=== PATIENT | male | born 1965 | race Caucasian/White ===

== ENCOUNTER → 2016-10-25 | Outpatient (CLI) | payer OTHER ==
[~2016-10-25] MED LIST: ATV/1 GT; CIPR-255 GT; CLIN300C2 GT; FLUC200T GT; LANS30CA63 MT; TAMS0.4C38 GT; VENL150T33 GT
--- NOTE | 2016-10-25 10:52 | DIAGNOSTIC IMAGING REPORT ---
ABDOMINAL ULTRASOUND TO ASSESS FOR HERNIA HISTORY: Incisional hernia. COMPARISON: CT of the abdomen and pelvis March 17, 2016. TECHNIQUE: Sonography of the mid abdomen at site of suspected hernia was performed. FINDINGS: Note was made of a probable small reducible fat-containing midline ventral hernia. No additional hernias were identified on this exam. IMPRESSION: Suspected small reducible fat-containing midline ventral hernia. Electronically signed by: Jimmy Hernandez M.D. 10/25/2016 10:51 AM Dictated Date/Time: 10/25/2016 10:48 AM
== END | disposition home or self-care (01) ==
LOC: C.ULTRBC 09:49
PROVIDERS: ATTEND Family Medicine
DX: K46.9 Unspecified abdominal hernia without obstruction or gangrene (principal)